=== PATIENT | female | born 1995 | race Caucasian/White ===

== ENCOUNTER 2021-02-19 17:58 | Emergency (ER) | payer MEDICAID, SELFPAY ==
[2021-02-19 19:48] LABS: COVID-19 Test Positive (Negative)
[2021-02-20 01:10] VITALS: BP 111/63; PULSE 78; RESP 16; TEMP 36.4; O2SAT 96; BMI 32.3
--- NOTE | 2021-02-20 01:46 | ED.URI ---
HPI - URI/Sore Throat General Chief Complaint: Upper Respiratory Symptoms <Christina Freed NP - Last Filed: 02/20/21 01:52> Stated Complaint: no taste,back pain ,sore throat <Christina Freed NP - Last Filed: 02/20/21 01:52> Time Seen by Provider: 02/20/21 02:28 <Christina Freed NP - Last Filed: 02/20/21 01:52> Source: patient <Christina Freed NP - Last Filed: 02/20/21 01:52> Mode of arrival: ambulatory <Christina Freed NP - Last Filed: 02/20/21 01:52> Limitations: no limitations <Christina Freed NP - Last Filed: 02/20/21 01:52> History of Present Illness HPI Narrative: 26-year-old female presents with upper respiratory symptoms consistent with COVID-19. Stated that her mother tested positive yesterday. Requesting COVID-19 testing. <Christina Freed NP - Last Filed: 02/20/21 01:52> MD elicited complaint: sore throat and other (Body aches) <Christina Freed NP - Last Filed: 02/20/21 01:52> Onset (ago): day(s) <Christina Freed NP - Last Filed: 02/20/21 01:52> Consistency: constant <Christina Freed NP - Last Filed: 02/20/21 01:52> Severity: mild <Christina Freed NP - Last Filed: 02/20/21 01:52> Description of mucous: clear <Christina Freed NP - Last Filed: 02/20/21 01:52> Able to tolerate fluids by mouth: Yes <Christina Freed NP - Last Filed: 02/20/21 01:52> Relieving factors: nothing <Christina Freed NP - Last Filed: 02/20/21 01:52> Context: sick contacts <Christina Freed NP - Last Filed: 02/20/21 01:52> Associated symptoms: chills, myalgias, headache, nasal congestion and sore throat <Christina Freed NP - Last Filed: 02/20/21 01:52> Treatments prior to arrival: none <Christina Freed NP - Last Filed: 02/20/21 01:52> Related Data Allergies/Adverse Reactions: Allergies Allergy/AdvReac Type Severity Reaction Status Date / Time No Known Allergies Allergy Unverified 02/20/21 01:17 <Christina Freed NP - Last Filed: 02/20/21 01:52> Review of Systems Review of Systems: Constitutional: No Fever, positive Chills, positive fatigue, positive Malaise ENT/Mouth: positive sore throat, positive runny nose Eyes: No Discharge Cardiovascular: No Chest Pain, No SOB Respiratory: No Cough, No Sputum, No Wheezing, No Smoke Exposure, No Dyspnea Gastrointestinal: No Nausea, No Vomiting, No Diarrhea Genitourinary: no irregular bleeding, No Dysuria, No Urinary Frequency, No Hematuria, No Urinary Incontinence, No Urgency, No Flank Pain, Musculoskeletal: positive Myalgia Skin: No rash Neuro: Positive Headache <Christina Freed NP - Last Filed: 02/20/21 01:52> Yes all other systems are reviewed and are negative <Christina Freed NP - Last Filed: 02/20/21 01:52> PMFSH Past Medical History Attestation statement: The following information was validated with the patient. <Christina Freed NP - Last Filed: 02/20/21 01:52> Source: old records reviewed <Christina Freed NP - Last Filed: 02/20/21 01:52> Medical History: Medical History No known health problems <Christina Freed NP - Last Filed: 02/20/21 01:52> Social History Social History: Social History Advance Directives: No Advance Directives Information Provided: Yes Patient : No <Christina Freed NP - Last Filed: 02/20/21 01:52> Physical Exam Vital Signs: Vital Signs: Last Vital Signs Temp 97.5 F 02/20/21 01:10 Pulse 78 02/20/21 01:10 Resp 16 02/20/21 01:10 BP 111/63 02/20/21 01:10 Pulse Ox 96 02/20/21 01:10 BMI result Body Mass Index 32.3 <Christina Freed NP - Last Filed: 02/20/21 01:52> Vital Signs: Last Vital Signs Temp 97.5 F 02/20/21 01:10 Pulse 78 02/20/21 01:10 Resp 16 02/20/21 01:10 BP 111/63 02/20/21 01:10 Pulse Ox 96 02/20/21 01:10 BMI result Body Mass Index 32.3 <Jorge Nash MD - Last Filed: 02/20/21 06:51> Appearance: Alert. Oriented X3. No acute distress. Eyes: Pupils equal, round and reactive to light. ENT: Pharynx normal. Neck: Normal inspection. Neck supple. CVS: Normal heart rate and rhythm. Pulses normal. Respiratory: No respiratory distress. Breath sounds normal. Abdomen: Soft and nontender. Skin: Skin warm and dry. Normal skin color. Normal skin turgor. Extremities: No lower extremity edema. Moves all extremities against resistance. Gait well-balanced well coordinated. Neuro: No motor deficit. No sensory deficit. Cranial nerves 2-12 intact. <Christina Freed NP - Last Filed: 02/20/21 01:52> Course Course Course Narrative: 26-year-old female presents with upper respiratory symptoms and positive COVID contact. Requesting COVID-19 testing. 1:49 a.m. COVID test is positive. Patient is afebrile, appears nontoxic, even unlabored respirations, O2 sat 97% on room air. Speaking in complete sentences. Plan of care is to discharge home with supportive measures. Patient verbalized understanding of and agrees to plan of care discharge home. <Christina Freed NP - Last Filed: 02/20/21 01:52> MDM - URI/Sore Throat MDM Narrative Medical decision making narrative: COVID-19 <Christina Freed NP - Last Filed: 02/20/21 01:52> Differential Diagnosis Differential diagnosis: Likely upper respiratory infection and viral infection <Christina Freed NP - Last Filed: 02/20/21 01:52> Medical Records Attestation: I reviewed the patient's medical records. <SHERIN Fang Last Filed: 02/20/21 01:52> Lab Data Attestation: I reviewed the patient's lab results. <Christina Freed NP - Last Filed: 02/20/21 01:52> Labs: Lab Results 02/19/21 Range/Units 19:29 COVID-19 (DAILY) Positive A (Negative) COVID-19 Clin Com See Note <Christina Freed NP - Last Filed: 02/20/21 01:52> Lab Results 02/19/21 Range/Units 19:29 COVID-19 (DAILY) Positive A (Negative) COVID-19 Clin Com See Note <Jorge Nash MD - Last Filed: 02/20/21 06:51> Discharge Plan Discharge Clinical Impression: COVID-19 <Christina Freed NP - Last Filed: 02/20/21 01:52> Patient Disposition: Home, Self-Care <Christina Freed NP - Last Filed: 02/20/21 01:52> Instructions: Covid-19 Viral Syndrome and Novel Coronavirus (ED) Hey/Ath, COVID-19 (Coronavirus Disease 2019) (ED) <Christina Freed NP - Last Filed: 02/20/21 01:52> Additional Instructions: You tested positive for COVID-19. Please maintain social isolation for State and Federal guidelines. Alternate Tylenol 650 mg every 6 hours and Motrin 600 mg every 6 hours as needed for fever control and muscle aches. Drink plenty of fluids. If symptoms worsen please follow-up with primary care physician or emergency department for further evaluation. Thank you for choosing this emergency department for evaluation. Please follow-up with primary care physician as needed. Return to the emergency department for any new, concerning, or worsening symptoms. <Christina Freed NP - Last Filed: 02/20/21 01:52> Stand Alone Forms: Work/School Release <Christina Freed NP - Last Filed: 02/20/21 01:52> Interventions: LWBS Worksheet Last Done: 02/19/21 19:58 ED Discharge Assessment Last Done: 02/20/21 02:27 <Christina Freed NP - Last Filed: 02/20/21 01:52> Discharge Date/Time: 02/20/21 02:30 <Christina Freed NP - Last Filed: 02/20/21 01:52>
== END 2021-02-20 02:30 | disposition home or self-care (01) ==
PROVIDERS: Emergency Provider Emergency Medicine; PCP Internal Medicine
DX: U07.1 COVID-19 (principal); R43.9 Unspecified disturbances of smell and taste
CPT/HCPCS: 36415; 87635; 99283

== ENCOUNTER 2024-09-08 09:52 | Outpatient (REF) | payer MEDICAID, SELFPAY ==
--- OUTSIDE RECORDS SUMMARY | 2024-07-26 06:33 | XMS_ITS ---
Author Organization [facility] Address [address] [place] [phone] Care Team Providers Care [employer] Name Role Phone [facility] Primary Care Provider [facility], Nursing Unavailable [phone] Jamar Cortez Unavailable [phone] REASON FOR VISIT dental appt Encounters Encounter Location Date Provider Diagnosis [address] [address] 07/26/2024 Jamar Cortez Plan Of Treatment No Information Progress Notes * Elizabeth CHACONsDOB:1 04/10/1994 (29 yo F)Acc No.[id number]:07/26/2024 Patient: Denisha PANTOJA Jose DIXON :1995 A ge:29 Y S ex:Female Address:[address] [place] [address], [id number] * * Date:
[2024-09-08 11:34] LABS: Hematocrit 41.7 % (37.0-47.0); Hemoglobin 14.1 g/dl (12.0-16.0); Mean Corpuscular HGB Conc 33.8 g/dl (31.0-35.0); Mean Corpuscular Hemoglobin 29.7 pg (27.0-33.0); Mean Corpuscular Volume 87.8 fL (80.0-98.0); NRBC Abs Auto 0.000 X10*3/uL (0.0-0.012); NRBC Pct Auto 0.0 /100WBC (0.0-0.2); Platelet Count 314 X10*3/uL (160-400); Red Blood Count 4.75 X10*6/uL (4.20-5.50); White Blood Count 8.9 X10*3/uL (4.8-10.8)
[2024-09-08 11:59] LABS: Alanine Aminotransferase 22 U/L (0-31); Albumin Level 4.8 g/dL (3.5-5.0); Alkaline Phosphatase 102 U/L (39-117); Anion Gap 16 (12-20); Aspartate Amino Transferase 19 U/L (5-31); Blood Urea Nitrogen 9 mg/dL (9-16); Calcium 9.5 mg/dL (8.4-10.2); Carbon Dioxide 22 mmol/L (22-29); Chloride 106 mmol/L (96-108); Cholesterol 242 mg/dL (<200); Estimated Glomerular Filt Rate > 60; HDL Cholesterol 43 mg/dL (>40); Potassium 4.1 mmol/L (3.3-5.1); Sodium 140 mmol/L (135-145); Total Protein 8.0 g/dL (6.5-8.0); Triglycerides 133 mg/dL (<150)
[2024-09-08 12:07] LABS: Hemoglobin A1C 375.8141 umol/L; Total Hemoglobin (HGBA1C) 4771.6117 umol/L
[2024-09-08 12:08] LABS: HBS Num1 1.27 mIU/mL (0-7.99); HBc Num1 0.09 S/CO (0.00-0.79); HBsAGNum1 0.40 S/CO (0.00-0.99); HIV Num 1 0.05 S/CO (0.00-0.99); Hepatitis B Surface Antigen Negative (Negative); ~HepC Num1 0.10 S/CO (0.00-0.79); ~Hepatitis B Surface Antibody NONREACTIVE (Nonreactive); ~Hepatitis C Antibody Nonreactive (Nonreactive)
[2024-09-08 12:18] LABS: Free T4 (Free Thyroxine) 1.02 ng/dL (0.71-1.85); Thyroid Stimulating Hormone 0.86 uIU/mL (0.32-4.0)
[2024-09-08 12:38] LABS: ~Hepatitis A Antibody IgG 8.01 S/CO (0.00-0.99)
[2024-09-08 12:46] LABS: CT PCR Urine NOT DETECTED (Not Detect.); NG PCR Urine NOT DETECTED (Not Detect.)
== END 2024-09-08 09:53 | disposition home or self-care (01) ==
LOC: HO.HHCL 09:52
PROVIDERS: Visit Provider Family Medicine
DX: Z11.59 Encounter for screening for other viral diseases (principal); Z11.4 Encounter for screening for human immunodeficiency virus [HIV]; R53.83 Other fatigue
CPT/HCPCS: 36415; 80048; 80061; 80076; 82306; 83036; 84439; 84443; 85027; 86592; 86704; 86706; 86708; 86803; 87340; 87389; 87491; 87591